=== PATIENT | female | born 1985 | race Caucasian/White ===

== ENCOUNTER 2024-11-10 19:02 | Emergency (ER) | payer MEDICAID ==
[~2024-11-10] VITALS: Ht 157.5 cm; Wt 52.2 kg
[2024-11-10 19:18] VITALS: BP 150/76; TEMP 98.2; O2SAT 98
== END 2024-11-10 21:29 | disposition home or self-care (01) ==
LOC: ER 19:06
DX: F19.10 Other psychoactive substance abuse, uncomplicated (principal); R06.02 Shortness of breath; Z59.00 Homelessness unspecified; Z88.1 Allergy status to other antibiotic agents
CPT/HCPCS: 71045-TC